=== PATIENT | female | born 1940 | race Caucasian/White ===

== ENCOUNTER → 2017-03-14 | Outpatient (CLI) | payer OTHER ==
[~2017-03-14] MED LIST: AMBI5TAB PO; AMLO10 PO; ASPI81TA82 PO; HYDR-3533 PO; MECL25 PO; MELA5TAB8 PO; MELO7.5 PO; METO25CR PO; OXYBXL5 PO; VITA100018 PO
--- NOTE | 2017-03-15 10:04 | RSPPFT ---
DATE OF PROCEDURE: 03/14/17 COMMENTS: VOLUMES DYNAMIC: FVC mildly reduced; FEV1 low normal. STATIC: TLC low normal; FRC and RV normal. FLOWS: FEV1% and FEF 25-75 super normal. DIFFUSION: Moderately reduced. FLOW VOLUME LOOP: Restrictive configuration. IMPRESSION: Mild restrictive ventilatory defect with no airways obstruction. Diffusion is moderately reduced.
== END ==
LOC: HRSP 11:54
DX: J45.909 Unspecified asthma, uncomplicated (principal)
CPT/HCPCS: 94060; 94618; 94726; 94729